=== PATIENT | female | born 1990 | race Caucasian/White ===

== ENCOUNTER → 2016-03-17 | Outpatient (CLI) | payer BC ==
[2016-03-17 15:07] VITALS: BP 132/81; PULSE 94; RESP 20; TEMP 98.1; BMI 40.8
--- NOTE | 2016-03-17 15:58 | P.BASOAP ---
Subjective Principal diagnosis: Morbid obesity Patient seen today after her recent upper endoscopy. She has no new complaints. She is excited about her upcoming bariatric procedure. She has finished her preoperative workup. Her recent upper endoscopy results are reviewed. She finished smoking approximately 3 weeks ago. Objective - Vital Signs Vital signs: Vital Signs Temp 98.1 F 03/17/16 14:56 Pulse 94 03/17/16 14:56 Resp 20 03/17/16 14:56 BP 132/81 03/17/16 14:56 Pulse Ox Intake & Output 03/16/16 03/17/16 03/17/16 18:59 06:59 18:59 Weight 114.85 kg - Exam Abdomen: Soft, nontender, nondistended Assessment/Plan (1) Morbid obesity Narrative/Plan: The patient's operative consent in the associate risks and benefits were discussed again in detail. All questions were appropriately answered. Will move forward with our operative scheduling. Patient will follow up with us next in this office postop. Plan: Date: 03/17/16 Initial Weight: 112.037 kg Initial BMI: 39.9 Current Weight: 114.85 kg Current BMI: 40.8 Type of Surgery: Vertical Sleeve Gastrectomy Total Volume in Band: Previous Volume: Volume Removed: Volume Added: Band Size:
== END | disposition home or self-care (01) ==
LOC: BARWHC3 14:40
PROVIDERS: ATTEND Surgery
DX: Z01.818 Encounter for other preprocedural examination (principal); E66.01 Morbid (severe) obesity due to excess calories
CPT/HCPCS: 99211

== ENCOUNTER 2016-05-01 07:45 | Inpatient (IN) | payer BC ==
[~2016-05-01 07:45] MED LIST: DEXAMETHASONE SOD PHOSPHATE 10 MG/ML 1 ML VIAL IV ONE; ENOXAPARIN 40 MG/0.4 ML SYRINGE SQ ONE; HYDROmorphone 1 MG/ML 1 ML SYRINGE IVP PRN; MIDAZOLAM 2 MG/2 ML VIAL IV PRN; ONDANSETRON 4 MG/2 ML VIAL IVP ONE; SCOPOLAMINE 1.5MG/72HR PATCH TRANSDERM ONE; ceFAZolin 2 GM in SODIUM CHLORIDE 0.9% 100 ML IVPB ONE
--- NOTE | 2016-05-01 10:19 | P.GSHP ---
History of Present Illness H&P Date: 05/01/16 Chief Complaint: Morbid obesity Patient with a history of chronic obesity. She's been suffering with this. The majority of her life. She's tried a variety of different weight loss modalities without any sustained success. She has investigated gastric bypass the lap band and the sleeve gastrectomy but prefers the risk profile of the sleeve gastrectomy. The patient suffers from PCL less, psoriasis, and GERD symptoms. She had a recent upper endoscopy which showed mild gastritis. Denies dysphagia or DVT. BMI when evaluated in the office was 40.4. Past Medical History Additional Past Medical History / Comment(s): PCOS, psoriasis, History of Any Multi-Drug Resistant Organisms: None Reported Past Surgical History: Orthopedic Surgery Additional Past Surgical History / Comment(s): lt knee orthoscopic Past Anesthesia/Blood Transfusion Reactions: No Reported Reaction Past Psychological History: No Psychological Hx Reported Smoking Status: Former smoker Past Alcohol Use History: Rare Additional Past Alcohol Use History / Comment(s): working on quitting, attempting chantex w/Dr Hanson Past Drug Use History: None Reported - Past Family History Mother Family Medical History: Coronary Artery Disease (CAD) Additional Family Medical History / Comment(s): 2 heart attack Father Family Medical History: No Reported History Medications and Allergies Home Medications Medication Instructions Recorded Confirmed Type Etonogestrel [Nexplanon ( 68 mg SQ DIRECTED 11/19/15 04/28/16 History control implant)] Varenicline [Chantix] 0.5 mg PO DAILY 02/04/16 04/28/16 History Clobetasol Propionate/Emoll 1 applic TOPICAL DAILY 02/07/16 04/28/16 History [Clobetasol Emulsion 0.05% Foam] Allergies Allergy/AdvReac Type Severity Reaction Status Date / Time No Known Allergies Allergy Verified 04/28/16 11:18 Surgical - Exam Physical exam: General: Well-developed, well-nourished HEENT: Normocephalic, sclerae nonicteric Abdomen: Nontender, nondistended Extremities: No edema Neuro: Alert and oriented Assessment and Plan (1) Morbid obesity Narrative/Plan: We'll proceed with sleeve gastrectomy at this time. The risks of bleeding, infection, stenosis, leak, abscess, fistula formation, poor weight loss, chronic reflux, respiratory and cardiac complications were discussed. She understands and wishes to proceed. Status: Acute
[2016-05-01] MEDS ORDERED: LIDOCAINE 1% 20 ML VIAL (10MG/ML) FOR IV START INTRADERMA ONE (11:00)
[2016-05-01] MEDS: LACTATED RINGERS 1,000 ML IV SCH (11:07)
[2016-05-01] MEDS ORDERED: NEOSTIGMINE 1 MG/ML 10 ML VIAL ONE (12:57)
[2016-05-01] MEDS ORDERED: SUCCINYLCHOLINE CHLORIDE 100 MG/5 ML SYR IV ONE (12:57)
[2016-05-01] MEDS ORDERED: MIDAZOLAM 2 MG/2 ML VIAL ONE (12:57)
[2016-05-01] MEDS ORDERED: HYDROmorphone (PF) 1 MG/ML ONE (12:57)
[2016-05-01] MEDS ORDERED: GLYCOPYRROLATE 0.2 MG/ML 2 ML VIAL ONE (12:57)
[2016-05-01] MEDS ORDERED: ROCURONIUM BROMIDE 10 MG/ML 10 ML VIAL IV ONE (12:57)
[2016-05-01] MEDS ORDERED: PROPOFOL 10 MG/ML 20 ML VIAL IV ONE (12:57)
[2016-05-01] MEDS ORDERED: fentaNYL (PF) 50 MCG/ML 2 ML AMP ONE (12:57)
[2016-05-01] MEDS ORDERED: LIDOCAINE 1% INJ 10MG/ML (20 ML MDV) ONE (12:57)
[2016-05-01] MEDS ORDERED: BUPIVACAIN-EPI 0.25%-1:200,000 30 ML VIAL SQ ONE ×2 (13:44)
[2016-05-01] MEDS ORDERED: LACTATED RINGERS 1,000 ML IV ONE (14:35)
[2016-05-01] MEDS ORDERED: NALOXONE 0.4 MG/ML 1 ML VIAL IV PRN (14:39)
[2016-05-01] MEDS ORDERED: diphenhydrAMINE 50 MG/ML 1 ML VIAL IVP PRN (14:41)
[2016-05-01] MEDS ORDERED: SIMETHICONE 40 MG/0.6 ML DROPS 2,000 MG/30 ML BOTTLE PO PRN (14:41)
--- NOTE | 2016-05-01 14:49 | P.OP ---
Date of Procedure: 05/01/16 Procedure(s) Performed: PREOPERATIVE DIAGNOSIS: Morbid obesity, GERD, PCO S POSTOPERATIVE DIAGNOSIS: Same PROCEDURE: Laparoscopic sleeve gastrectomy SURGEON: Susan EBL: Minimal ANESTHESIA: General COMPLICATIONS: None OPERATIVE PROCEDURE: Patient was placed in the operating table in the supine position. She was placed under general anesthesia at that time. The abdomen was prepped and draped in sterile fashion after the patient was placed in lithotomy. A 5 mm optical trocar was used to enter the abdominal cavity in the left upper quadrant. Insufflation took place to 15 millimeters mercury. An additional right subxiphoid 5 mm trocar was then placed under direct relation and then removed. 2 additional 5 mm trochars were placed in the right upper quadrant and left upper quadrant under direct visualization and a 15 mm trocar in the supraumbilical location. The liver was retracted using a medium Cinda liver retractor through the right subxiphoid trocar site. The hiatus was inspected. There was no visible hiatal hernia. I then switched and divided the short gastrics distally to a 3-4 cm from the pylorus. The dissection took place up to the left diaphragmatic crura at that point. The posterior short gastrics were likewise divided using the LigaSure device. Once the stomach was fully mobilized the blunt tipped 40-Telugu bougie dilator was advanced into the stomach and advanced all the way to the prepyloric location. A black echelon 60 stapler was utilized and fired tangentially across the antrum taking care to avoid narrowing at the incisura angularis. Subsequent firings of the stapler took place. A total of 5 green echelon 60 staplers with seam guard took place proximally staying on the outer edge of our dilator. The stomach was insufflated with approximately 100 mL of methylene blue. No evidence of leak or obstruction was seen. There were 2 or 3 small areas of bleeding along the staple line were controlled using the 12 mm Ligaclip. Tisseel fibrin glue was then sprayed along the entire length of the staple line. No bleeding was identified. The distal aspect of the sleeve was then reapproximated to the gastrosplenic and gastrocolic ligament using a short running 20 strata fix suture. This was done to prevent kinking or twisting of the sleeve. The stomach remnant was removed from the 15 mm trocar site without difficulty. The fascia at the 15 more site was closed using interrupted 0 Vicryl sutures with the laparoscopic suture passer and Ashu Rosa technique. The insufflation was evacuated. The skin at all 5 incisions were closed using 4-0 Monocryl sutures. Steri-Strips and sterile dressings were then applied. DISPOSITION: Stable to recovery room
[2016-05-01] MEDS ORDERED: MEPERIDINE 50 MG/ML SYRINGE IVP ONE ×2 (15:17→15:30)
[2016-05-01] MEDS: KETOROLAC 30 MG/ML 1 ML VIAL IVP SCH ×2 (15:38→23:14)
[2016-05-01 16:36] VITALS: BMI 39.3
[2016-05-01] MEDS: 0.9% NACL WITH KCL 20 MEQ/L 1,000 ML IV SCH ×2 (16:49→23:13)
[2016-05-01] MEDS: HYDROmorphone 1 MG/ML 1 ML SYRINGE IVP PRN ×3 (17:55→23:14)
[2016-05-01] MEDS: ALBUTEROL NEBULIZED 2.5 MG/3 ML INHALATION SCH ×2 (18:42→18:50)
[2016-05-01] MEDS: ONDANSETRON 4 MG/2 ML VIAL IVP PRN (19:56)
[2016-05-01] MEDS: HYOSCYAMINE ORAL DROPS 1.875 MG/15 ML BOTTLE PO PRN (23:22)
[2016-05-02] MEDS: LACTATED RINGERS 1,000 ML IV SCH (00:27)
[2016-05-02] MEDS: HYDROmorphone 1 MG/ML 1 ML SYRINGE IVP PRN ×5 (03:03→21:40)
[2016-05-02] MEDS: ONDANSETRON 4 MG/2 ML VIAL IVP PRN ×3 (03:03→21:37)
[2016-05-02] MEDS: 0.9% NACL WITH KCL 20 MEQ/L 1,000 ML IV SCH ×2 (03:04→13:19)
[2016-05-02] MEDS: KETOROLAC 30 MG/ML 1 ML VIAL IVP SCH ×4 (05:28→23:37)
[2016-05-02 07:12] LABS: Basophils % (A) 0 %; CH 28.8; CHCM 33.1; Eosinophils % (A) 0 %; HCT 37.1 % (34.0-46.0); HDW 2.68; HGB 11.7 gm/dL (11.4-16.0); Luc # (Auto) 0.09; Luc % (Auto) 1; Lymphocytes # (A) 1.3 k/uL (1.0-4.8); Lymphocytes % (A) 19 %; MCH 27.6 pg (25.0-35.0); MCHC 31.6 g/dL (31.0-37.0); MCV 87.5 fL (80.0-100.0); Monocytes # (A) 0.3 k/uL (0-1.0); Monocytes % (A) 5 %; Neutrophils % (A) 74 %; RBC 4.24 m/uL (3.80-5.40); RDW 13.2 % (11.5-15.5); WBC 6.8 k/uL (3.8-10.6); WBC (Perox) 7.38
[2016-05-02 07:19] LABS: Anion Gap 11 mmol/L; Blood Urea Nitrogen 7 mg/dL (7-17); Calcium 8.2 mg/dL (8.4-10.2); Carbon Dioxide 22 mmol/L (22-30); Chloride 107 mmol/L (98-107); Magnesium 1.9 mg/dL (1.6-2.3); Non-African American GFR(MDRD) >60 (>60 ml/min/1.73 sqM); Phosphorous 3.1 mg/dL (2.5-4.5); Potassium 4.5 mmol/L (3.5-5.1); Sodium 140 mmol/L (137-145)
[2016-05-02] MEDS: ALBUTEROL NEBULIZED 2.5 MG/3 ML INHALATION SCH ×4 (08:01→19:55)
[2016-05-02] MEDS: PANTOPRAZOLE 40 MG/10 ML VIAL IV SCH (08:08)
[2016-05-02] MEDS: ENOXAPARIN 40 MG/0.4 ML SYRINGE SQ SCH ×2 (08:09→21:45)
[2016-05-02] MEDS: HYOSCYAMINE ORAL DROPS 1.875 MG/15 ML BOTTLE PO PRN ×2 (08:10→16:27)
--- NOTE | 2016-05-02 08:57 | FL ---
Single contrast upper GI examination CLINICAL HISTORY: 25-year-old female postop gastric sleeve yesterday TECHNIQUE: Limited upper GI is performed utilizing 40 mL of Omnipaque 350. Total fluoroscopy time: 40 seconds. FINDINGS: The patient swallowed oral contrast without difficulty or delay. Esophageal peristalsis and motility are within normal limits. There is mild to moderate delay in passage of contrast from the esophagus into the stomach. This results in prominent peristalsis within the lower esophagus with episodes of intraesophageal reflux. After gradual and intermittent passage, there is again mild to moderate delay in passage of contrast into the small bowel. There are postsurgical changes of sleeve gastrectomy de monstrated. No evidence of contrast extravasation to suggest leak. Trace postsurgical free air below the right hemidiaphragm. IMPRESSION: 1. No evidence of leak status post sleeve gastrectomy. 2. There is mild to moderate obstruction to the passage of contrast most likely due to postoperative swelling. 3. Trace postsurgical free air on the right.
--- NOTE | 2016-05-02 09:43 | P.PN ---
Subjective Principal diagnosis: Morbid obesity Patient doing well today. Mild abdominal discomfort. She is ambulating. Upper GI this morning shows no leak with minimal holdup in the proximal sleeve Objective - Vital Signs Vital signs: Vital Signs Temp 99 F 05/02/16 07:00 Pulse 92 05/02/16 07:00 Resp 15 05/02/16 07:00 BP 125/70 05/02/16 07:00 Pulse Ox 95 05/02/16 07:00 Intake & Output 05/01/16 05/02/16 05/02/16 18:59 06:59 18:59 Intake Total 1400 400 Output Total 5 1350 Balance 1395 -950 Weight 113.9 kg Intake: IV 1400 400 0.9% NaCl with KCl 20 Meq 400 /l 1,000 ml @ 100 mls/hr IV .BY DURATION LEONID Rx#: [id number] Output: Urine 1350 Estimated Blood Loss 5 Other: Voiding Method Toilet Toilet # Voids 1 - Exam Abdomen: Soft, nondistended, mild tenderness, some old blood at the most lateral 5 mm right upper quadrant incision site - Labs CBC & Chem 7: 05/02/16 06:41 05/02/16 06:41 Labs: Abnormal Lab Results - Last 24 Hours (Table) 05/02/16 Range/Units 06:41 Calcium 8.2 L (8.4-10.2) mg/dL Assessment and Plan (1) Morbid obesity Narrative/Plan: Begin bariatric clear liquids. Crease ambulation. Recheck lab work tomorrow. Status: Acute
--- NOTE | 2016-05-02 19:19 | CONS ---
DATE OF CONSULTATION: 05/02/2016. REASON FOR CONSULTATION: Medical management requested by requested by Dr. Davis. CONSULTATION: This is a 25-year-old patient 25-year-old patient of Dr. Hanson who has undergone a gastric sleeve by Dr. Davis. Patient had some nausea earlier, feeling somewhat better. Patient did pass upper GI series. Some pain at the upper site. The patient has been out of bed, up in the hallway. Patient's chronic stable medical conditions include gastritis, polycystic ovarian syndrome. Patient stopped smoking about 2 months ago. REVIEW OF SYSTEMS: CONSTITUTIONAL: Tired. HEENT: None. RESPIRATORY: None. CARDIOVASCULAR: None. GASTROINTESTINAL: Nausea. GASTROINTESTINAL: None. MUSCULOSKELETAL: None. Dermatologic: None. HEMATOLOGIC: None. LYMPHATICS: None. PSYCHIATRY: None. NEUROLOGICAL: None. Past history of polycystic ovarian syndrome, gastritis and psoriasis. PAST SURGICAL HISTORY: Left knee arthroscopy. SOCIAL HISTORY: The patient stopped smoking 2 months ago. Lives with her parents. Works as a laboratory secretary, at her job. Family history of coronary artery disease. HOME MEDICATIONS: 1. control. 2. Splenon implant. 3. Chantix 0.5 mg p.o. daily. 4. Clobetasol topical. 5. Omeprazole 20 mg daily. 6. [place] 5, 1 to 2 tablets q.4 p.r.n. ALLERGIES: None. On examination, temperature 99, pulse 92, respirations 15, blood pressure 120/70, pulse ox 95% on room air. GENERAL APPEARANCE: Well built, BMI of 39.3, lying in bed, comfortable. EYES: Pupils equal. Conjunctivae normal. HEENT: External appearance of nose and ears normal. Oral cavity normal. NECK: JVD not raised. Mass not palpable. RESPIRATORY: Effort normal. Lungs are clear. CARDIOVASCULAR: First and second sounds normal. No edema. ABDOMEN: Soft, some scar [place] present. Minimal tenderness. Bowel sounds present. Liver and spleen not palpable. LYMPHATIC: No lymph nodes palpable in the neck or axillae. PSYCHIATRY: Alert and oriented x3. Mood and affect normal. NEUROLOGICAL: Pupils equal. Cranial nerves grossly intact. Power and sensation grossly intact. INVESTIGATIONS: White count 6.8, potassium 4.5, hemoglobin 11.7. ASSESSMENT: 1. Obesity, body mass index of 39.3. 2. Polycystic ovarian syndrome. 3. Nausea as a side effect of pain medication. PLAN: Patient encouraged to ambulate and that should help both with nausea and pain control. Medications are to continue. Getting IV fluids. Thank you, Dr. Davis. Will follow.
[2016-05-03] MEDS: HYDROmorphone 1 MG/ML 1 ML SYRINGE IVP PRN (05:04)
[2016-05-03] MEDS: LACTATED RINGERS 1,000 ML IV SCH (06:06)
[2016-05-03] MEDS: KETOROLAC 30 MG/ML 1 ML VIAL IVP SCH ×2 (06:24→11:27)
[2016-05-03 07:19] LABS: Basophils % (A) 1 %; CH 29.3; CHCM 33.4; Eosinophils % (A) 1 %; HCT 37.6 % (34.0-46.0); HDW 2.69; HGB 12.2 gm/dL (11.4-16.0); Luc # (Auto) 0.07; Luc % (Auto) 1; Lymphocytes # (A) 1.3 k/uL (1.0-4.8); Lymphocytes % (A) 25 %; MCH 28.6 pg (25.0-35.0); MCHC 32.4 g/dL (31.0-37.0); MCV 88.3 fL (80.0-100.0); Mean Platelet Volume 7.1; Monocytes # (A) 0.2 k/uL (0-1.0); Monocytes % (A) 4 %; Neutrophils # (A) 3.6 k/uL (1.3-7.7); Neutrophils % (A) 69 %; RBC 4.26 m/uL (3.80-5.40); RDW 13.2 % (11.5-15.5); WBC 5.2 k/uL (3.8-10.6); WBC (Perox) 5.44
[2016-05-03 07:32] LABS: Anion Gap 10 mmol/L; Blood Urea Nitrogen 5 mg/dL (7-17); Calcium 8.6 mg/dL (8.4-10.2); Carbon Dioxide 22 mmol/L (22-30); Chloride 108 mmol/L (98-107); Glucose 75 mg/dL (74-99); Non-African American GFR(MDRD) >60 (>60 ml/min/1.73 sqM); Potassium 4.6 mmol/L (3.5-5.1); Sodium 140 mmol/L (137-145)
[2016-05-03] MEDS: ALBUTEROL NEBULIZED 2.5 MG/3 ML INHALATION SCH ×3 (07:39→16:16)
[2016-05-03] MEDS ORDERED: BISACODYL 5 MG TABLET.DR PO PRN (08:00)
[2016-05-03] MEDS: PANTOPRAZOLE 40 MG/10 ML VIAL IV SCH (08:09)
[2016-05-03] MEDS: ENOXAPARIN 40 MG/0.4 ML SYRINGE SQ SCH (08:09)
[2016-05-03 08:20] VITALS: RESP 15
--- NOTE | 2016-05-03 10:42 | P.DS ---
Providers Date of admission: 05/01/16 08:50 Expected date of discharge: 05/03/16 Attending physician: Fahad Davis Consults: 05/01/16 14:41 Consult Physician Routine Consulting Provider: Dawson Jeff Consult Reason/Comments: Medical management Do you want consulting provider notified?: Yes Primary care physician: Alfred Hanson - Discharge Diagnosis(es) (1) Morbid obesity Patient doing well today. Tolerating her clear liquids. Minimal abdominal discomforts. No nausea or vomiting. She's taken about 10-12 ounces so far this morning. She would like to try to go home today. Her white blood cell count 5.2. His incisions are clean and dry. No further bleeding from that smaller incision site. Anticipate discharge later today with plans for follow- up on Wednesday. Current Visit: No Status: Acute Plan - Discharge Summary New Discharge Prescriptions: Hydrocodone/Acetaminophen [[place] 5-325] 1 - 2 each PO Q4HR PRN #30 tab PRN Reason: pain Omeprazole 20 mg PO DAILY #90 cap Discharge Medication List Etonogestrel [Nexplanon ( control implant)] 68 mg SQ [id number] 11/19/15 [ History] Varenicline [Chantix] 0.5 mg PO DAILY 02/04/16 [History] Clobetasol Propionate/Emoll [Clobetasol Emulsion 0.05% Foam] 1 applic TOPICAL DAILY 02/07/16 [History] Hydrocodone/Acetaminophen [[place] 5-325] 1 - 2 each PO Q4HR PRN #30 tab 05/01/16 [Rx] Omeprazole 20 mg PO DAILY #90 cap 05/01/16 [Rx] Follow up Appointment(s)/Referral(s): [facility] [NON-STAFF] - 05/05/16
[2016-05-03 15:38] VITALS: BP 120/74; PULSE 72; TEMP 97.8
--- NOTE | 2016-05-04 08:30 | PN ---
DATE OF SERVICE: 05/03/2016 PRESENTING COMPLAINT: Sleeve gastrectomy. INTERVAL HISTORY: Patient is status post sleeve gastrectomy, doing much better today. Did tolerate some liquids. No nausea. Has been up and about. Pain is better controlled. Review of systems done for constitutional, cardiovascular, GI, pulmonary; relevant findings as above. Current medications are reviewed. On examination, temperature 97.9, pulse 87, respiration 15, blood pressure 118/79, pulse ox 97% on room air. GENERAL APPEARANCE: Lying in bed, comfortable. EYES: Pupils equal. Conjunctivae normal. NECK: JVD not raised. Mass not palpable. RESPIRATORY: Effort normal. Lungs are clear. CARDIOVASCULAR: First and second sounds normal. No edema. ABDOMEN: Soft, minimal tenderness. Bowel sounds present. PSYCHIATRY: Alert and oriented x3. Mood and affect normal. INVESTIGATIONS: Potassium 4.6, white count 5.2. ASSESSMENT: 1. Obesity, body mass index of 39.3. 2. Polycystic ovarian syndrome. 3. Nausea as a side effect of pain medication, improved. PLAN: Patient doing well. Continue current medication and treatment plan. Discharge planning per Dr. Davis.
== END 2016-05-03 17:03 | disposition home or self-care (01) | DRG 621 ==
LOC: 2ORWHC 08:50 → 3SUR 15:07
PROVIDERS: ADMIT Surgery; ATTEND Surgery
PROC: 0DB64Z3 Excision of Stomach, Percutaneous Endoscopic Approach, Vertical (ICD-10-PCS; principal; 2016-05-01 13:00)
DX: E66.01 Morbid (severe) obesity due to excess calories (principal); Z68.39 Body mass index [BMI] 39.0-39.9, adult; E28.2 Polycystic ovarian syndrome; K21.9 Gastro-esophageal reflux disease without esophagitis; L40.9 Psoriasis, unspecified; K29.70 Gastritis, unspecified, without bleeding; R11.0 Nausea; T50.905A Adverse effect of unspecified drugs, medicaments and biological substances, initial encounter; Z87.891 Personal history of nicotine dependence; Z79.899 Other long term (current) drug therapy; Y92.230 Patient room in hospital as the place of occurrence of the external cause
CPT/HCPCS: 74240; 80048; 80051; 81025; 82310; 82565; 83735; 84100; 84520; 85025; 88307; 94640

== ENCOUNTER → 2016-05-05 | Outpatient (CLI) | payer BC ==
[2016-05-05 15:31] VITALS: BMI 39.4
[2016-05-05 15:39] VITALS: BP 128/87; PULSE 83; TEMP 97.9
--- NOTE | 2016-05-05 16:02 | P.BASOAP ---
Subjective Principal diagnosis: Morbid obesity Patient doing well today. She is 4 days post sleeve gastrectomy. She has had about a 10 pound weight loss. Heart rate is normal. Excellent fluid intake of 60-70 ounces. Protein about 60 g per day. No drainage. No nausea or vomiting. Objective - Vital Signs Vital signs: Vital Signs Temp 97.9 F 05/05/16 15:35 Pulse 83 05/05/16 15:35 Resp BP 128/87 05/05/16 15:35 Pulse Ox Intake & Output 05/04/16 05/05/16 05/05/16 18:59 06:59 18:59 Weight 110.858 kg - Exam Abdomen: Soft, nondistended, mild tenderness at the incision sites are clean and dry Assessment/Plan (1) Morbid obesity Narrative/Plan: Continue clear diet. Meet with dietitian today. Follow-up in the office 2 weeks. Plan: Date: 05/05/16 Initial Weight: 112.037 kg Initial BMI: 39.9 Current Weight: 110.858 kg Current BMI: 39.4 Type of Surgery: Total Volume in Band: Previous Volume: Volume Removed: Volume Added: Band Size:
== END | disposition home or self-care (01) ==
LOC: BARWHC3 13:59
PROVIDERS: ATTEND Surgery
DX: Z48.815 Encounter for surgical aftercare following surgery on the digestive system (principal); Z71.3 Dietary counseling and surveillance; E66.01 Morbid (severe) obesity due to excess calories; Z68.39 Body mass index [BMI] 39.0-39.9, adult; Z98.84 Bariatric surgery status
CPT/HCPCS: 99211

== ENCOUNTER 2016-05-17 08:07 | Emergency (ER) | payer BC ==
[2016-05-17 08:16] VITALS: RESP 18
[2016-05-17] MEDS ORDERED: IOHEXOL 350 MG/ML 25 ML BOTTLE (ORAL USE) PO PRN (08:31)
[2016-05-17] MEDS ORDERED: SODIUM CHLORIDE 0.9% 1,000 ML IV STA (08:31)
[2016-05-17] MEDS ORDERED: RX INFO: IV CONTRAST WAS GIVEN 1 EACH MISC MISCELLANE PRN (08:31)
--- NOTE | 2016-05-17 08:38 | ED ---
General Adult HPI - General Chief complaint: Abdominal Pain Stated complaint: post op problems Time Seen by Provider: 05/17/16 08:18 Source: patient Mode of arrival: ambulatory Limitations: no limitations - History of Present Illness Initial comments: 25-year-old female patient who is status post sleeve gastrectomy [address] Davis presents to emergency department today with complaints of diarrhea. Patient states that yesterday she felt generally unwell, had some lower abdominal cramping towards the evening, as well as a fever of 101. Patient states that this morning when she woke she had a couple episodes of watery diarrhea, and some more lower abdominal cramping. Patient denies any nausea or vomiting and states that she has been able to keep down fluids. Patient did switch diet to soft foods 2 days ago. Patient denies any current fever or chills, chest pain, shortness of breath, back pain, weakness, or dizziness. Patient denies any dark, bloody, or black stools. Patient denies any urinary frequency, urgency, or dysuria. Patient states that she does have some mild nasal drainage and congestion, as well as a cough. Patient denies any increased pain, redness, swelling, or drainage from her incision sites. - Related Data Home Medications Medication Instructions Recorded Confirmed Etonogestrel [Nexplanon ( 68 mg SQ [id number] 11/19/15 05/17/16 control implant)] Clobetasol Propionate/Emoll 1 applic TOPICAL DAILY 02/07/16 05/17/16 [Clobetasol Emulsion 0.05% Foam] Allergies Allergy/AdvReac Type Severity Reaction Status Date / Time No Known Allergies Allergy Verified 05/17/16 08:16 Review of Systems ROS Statement: Those systems with pertinent positive or pertinent negative responses have been documented in the HPI. ROS Other: All systems not noted in ROS Statement are negative. Past Medical History Past Medical History: No Reported History Additional Past Medical History / Comment(s): PCOS, psoriasis, History of Any Multi-Drug Resistant Organisms: None Reported Past Surgical History: Bariatric Surgery, Orthopedic Surgery Additional Past Surgical History / Comment(s): lt knee orthoscopic; gastric sleeve 05-01-16 Past Anesthesia/Blood Transfusion Reactions: No Reported Reaction Past Psychological History: No Psychological Hx Reported Smoking Status: Former smoker Past Alcohol Use History: None Reported Additional Past Alcohol Use History / Comment(s): working on quitting, attempting chantex w/Dr Hanson Past Drug Use History: None Reported - Past Family History Mother Family Medical History: Coronary Artery Disease (CAD) Additional Family Medical History / Comment(s): 2 heart attack Father Family Medical History: No Reported History General Exam Limitations: no limitations General appearance: alert, in no apparent distress Head exam: Present: atraumatic, normocephalic Eye exam: Present: normal appearance, PERRL, EOMI Pupils: Present: normal accommodation ENT exam: Present: normal exam, normal oropharynx, mucous membranes moist. Absent: mucous membranes dry Neck exam: Present: normal inspection, full ROM. Absent: lymphadenopathy Respiratory exam: Present: normal lung sounds bilaterally. Absent: respiratory distress, wheezes, rales, rhonchi Cardiovascular Exam: Present: regular rate, normal rhythm. Absent: bradycardia , tachycardia, irregular rhythm, normal heart sounds, systolic murmur, diastolic murmur, rubs, gallop, clicks, JVD GI/Abdominal exam: Present: soft, tenderness (Mild tenderness near umbilical incision), normal bowel sounds, other (Abdominal incisions are well approximated , without erythema, swelling, or drainage.). Absent: distended, guarding, rebound, rigid, diminished bowel sounds, organomegaly, mass, hernia Extremities exam: Present: normal inspection Back exam: Present: normal inspection Neurological exam: Present: alert, oriented X3, CN II-XII intact Psychiatric exam: Present: normal affect, normal mood Skin exam: Present: warm, dry, intact Course Vital Signs 05/17/16 05/17/16 08:12 08:57 Temperature 98.3 F 99 F Pulse Rate 85 Respiratory 18 Rate Blood Pressure 119/72 O2 Sat by Pulse 100 Oximetry Medical Decision Making - Medical Decision Making 25-year-old female patient who is status post sleeve gastrectomy [address] Davis presented to emergency department today for complaints of diarrhea, fever, general malaise, and lower abdominal cramping. Patient did receive lab work which was unremarkable other than a lipase of 387. Also did have a CT abdomen and pelvis with oral and IV contrast which did not reveal any abnormalities. At this time it is felt that symptoms are viral in nature. Patient has been instructed to continue a clear liquid diet for the next 48 hours and to have a repeat lipase level done at that time. Patient does have a definite appointment with her surgeon on Wednesday. Patient has been instructed to keep this appointment. Patient also instructed to return for any new, worsening, or concerning symptoms. Patient verbalizes understanding and agrees this plan. - Lab Data Result diagrams: 05/17/16 08:45 05/17/16 08:45 Lab Results 05/17/16 05/17/16 05/17/16 Range/Units 08:45 08:45 08:45 WBC 3.9 (3.8-10.6) k/uL RBC 4.99 (3.80-5.40) m/uL Hgb 14.0 (11.4-16.0) gm/dL Hct 43.5 (34.0-46.0) % MCV 87.4 (80.0-100.0) fL MCH 28.0 (25.0-35.0) pg MCHC 32.1 (31.0-37.0) g/dL RDW 13.3 (11.5-15.5) % Plt Count 285 (150-450) k/uL Neutrophils % 70 % Lymphocytes % 22 % Monocytes % 4 % Eosinophils % 2 % Basophils % 1 % Neutrophils # 2.8 (1.3-7.7) k/uL Lymphocytes # 0.9 L (1.0-4.8) k/uL Monocytes # 0.1 (0-1.0) k/uL Eosinophils # 0.1 (0-0.7) k/uL Basophils # 0.0 (0-0.2) k/uL Sodium 145 (137-145) mmol/L Potassium 4.1 (3.5-5.1) mmol/L Chloride 105 (98-107) mmol/L Carbon Dioxide 27 (22-30) mmol/L Anion Gap 13 mmol/L BUN 8 (7-17) mg/dL Creatinine 0.91 (0.52-1.04) mg/dL Est GFR (MDRD) Af Amer >60 (>60 ml/min/1.73 sqM) Est GFR (MDRD) Non-Af >60 (>60 ml/min/1.73 sqM) Glucose 108 H (74-99) mg/dL Calcium 9.4 (8.4-10.2) mg/dL Total Bilirubin 0.7 (0.2-1.3) mg/dL AST 33 (14-36) U/L ALT 30 (9-52) U/L Alkaline Phosphatase 88 (38-126) U/L Total Protein 7.7 (6.3-8.2) g/dL Albumin 4.3 (3.5-5.0) g/dL Amylase 55 (30-110) U/L Lipase 387 H (23-300) U/L Influenza Type A RNA Not Detected (Not Detectd) Influenza Type B (PCR) Not Detected (Not Detectd) - Radiology Data Radiology results: report reviewed CT abdomen and pelvis with oral and IV contrast reveals no acute abnormalities. Impression by Dr. Lind is postsurgical changes. Disposition Clinical Impression: Diarrhea, Abdominal discomfort Disposition: HOME SELF-CARE Condition: Stable Instructions: Acute Diarrhea (ED), Abdominal Pain (ED) Additional Instructions: Clear liquid diet for the next 48 hours. Have lipase rechecked by in 2 days. Keep follow-up appointment with bariatric surgeon. Return immediately for any new, worsening, or concerning symptoms. Referrals: Alfred Hanson MD [Primary Care Provider] - 1-2 days Fahad Davis MD [Medical Doctor] - 1-2 days Time of Disposition: 10:23
[2016-05-17 09:01] LABS: Basophils % (A) 1 %; CH 28.8; CHCM 33.1; Eosinophils # (A) 0.1 k/uL (0-0.7); Eosinophils % (A) 2 %; HCT 43.5 % (34.0-46.0); HDW 2.88; Luc # (Auto) 0.07; Luc % (Auto) 2; Lymphocytes # (A) 0.9 k/uL (1.0-4.8); Lymphocytes % (A) 22 %; MCHC 32.1 g/dL (31.0-37.0); MCV 87.4 fL (80.0-100.0); Mean Platelet Volume 7.1; Monocytes # (A) 0.1 k/uL (0-1.0); Monocytes % (A) 4 %; Neutrophils # (A) 2.8 k/uL (1.3-7.7); Neutrophils % (A) 70 %; RBC 4.99 m/uL (3.80-5.40); RDW 13.3 % (11.5-15.5); WBC 3.9 k/uL (3.8-10.6); WBC (Perox) 3.97
[2016-05-17 09:13] LABS: ALT 30 U/L (9-52); AST 33 U/L (14-36); Alkaline Phosphatase 88 U/L (38-126); Amylase 55 U/L (30-110); Anion Gap 13 mmol/L; Blood Urea Nitrogen 8 mg/dL (7-17); Calcium 9.4 mg/dL (8.4-10.2); Carbon Dioxide 27 mmol/L (22-30); Chloride 105 mmol/L (98-107); Glucose 108 mg/dL (74-99); Non-African American GFR(MDRD) >60 (>60 ml/min/1.73 sqM); Potassium 4.1 mmol/L (3.5-5.1); Sodium 145 mmol/L (137-145); Total Bilirubin 0.7 mg/dL (0.2-1.3); Total Protein 7.7 g/dL (6.3-8.2)
--- NOTE | 2016-05-17 10:12 | CT ---
EXAMINATION TYPE: CT abdomen pelvis w con DATE OF EXAM: 05/17/2016 10:01 AM COMPARISON: NONE HISTORY: post op 2 weeks, fever and diarrhea CT DLP: 2417.3 mGycm Automated exposure control for dose reduction was used. CONTRAST: CT scan of the abdomen pelvis is performed with IV Contrast, patient injected with 100 mL of Omnipaqu e 300. FINDINGS- LUNG BASES- No significant abnormality is appreciated. LIVER/GB-low density involving the left lobe liver may represent localized fatty infiltration. PANCREAS- No gross abnormality is seen. SPLEEN- No gross abnormality is seen. ADRENALS- No gross abnormality is seen. KIDNEYS/BLADDER- no hydronephrosis nephrolithiasis or renal mass. BOWEL- no bowel dilatation. Normal appendix. Postsurgical change involving the stomach noted. LYMPH NODES- No greater than 1cm abdominal or pelvic lymph nodes are appreciated. OSSEOUS STRUCTURES- No significant abnormality is seen. OTHER- small periumbilical hernia containing peritoneal fat. Ovaries appear symmetric in size. IMPRESSION- 1. Postsurgical changes
[2016-05-17 10:24] VITALS: BP 113/57; PULSE 69
[2016-05-17 10:39] VITALS: TEMP 99.4
== END 2016-05-17 10:39 | disposition home or self-care (01) ==
LOC: EC 08:07
DX: R10.33 Periumbilical pain (principal); R19.7 Diarrhea, unspecified; R50.9 Fever, unspecified; R53.81 Other malaise; R05 Cough; R09.81 Nasal congestion; L40.9 Psoriasis, unspecified; Z87.891 Personal history of nicotine dependence; Z79.3 Long term (current) use of hormonal contraceptives; Z79.899 Other long term (current) drug therapy; Z98.84 Bariatric surgery status; Z90.49 Acquired absence of other specified parts of digestive tract
CPT/HCPCS: 36415; 80053; 82150; 83690; 85025; 87040; 87502; 74177; 99284; 96360; Q9967

== ENCOUNTER → 2016-05-19 | Outpatient (CLI) | payer BC ==
[2016-05-19 16:00] VITALS: BP 116/65; PULSE 66; RESP 20; TEMP 97.8; BMI 38.2
--- NOTE | 2016-05-19 16:06 | P.BASOAP ---
Subjective Principal diagnosis: Morbid obesity Patient is 3 weeks post sleeve gastrectomy. She is doing well at this time. Apparently 3 days ago she had some vague nausea and episode of diarrhea with a low-grade fever. She was concerned and without contacting our office went to the ER for evaluation. She underwent a CAT scan and basic lab work. The CT shows no definite inflammatory changes in the sleeve region. Her lipase was slightly elevated. Her white blood cell count was normal. She has a normal heart rate at this time. Her pain is absent. No reflux. No nausea or vomiting. She was able to tolerate some an omelette this morning. Weight loss to 236 from 244 last visit. Objective - Exam Abdomen: Soft, nondistended, nontender, incisions clean and dry Assessment/Plan (1) Morbid obesity Narrative/Plan: Continue soft diet. Patient had recent labs while in the emergency department. We'll follow up in 4 weeks and we'll obtain full complement of lab work at that time. Plan: Date: Initial Weight: 112.037 kg Initial BMI: Current Weight: Current BMI: Type of Surgery: Total Volume in Band: Previous Volume: Volume Removed: Volume Added: Band Size:
== END | disposition home or self-care (01) ==
LOC: BARWHC3 14:53
PROVIDERS: ATTEND Surgery
DX: Z48.815 Encounter for surgical aftercare following surgery on the digestive system (principal); E66.01 Morbid (severe) obesity due to excess calories; Z98.84 Bariatric surgery status
CPT/HCPCS: 99211

== ENCOUNTER → 2016-07-14 | Outpatient (CLI) | payer BC ==
[2016-07-14 15:20] VITALS: BP 132/76; PULSE 65; RESP 20; TEMP 98.8; BMI 34.9
--- NOTE | 2016-07-14 15:55 | P.BASOAP ---
Subjective Principal diagnosis: Morbid obesity Patient doing well today. Denies pain. No dysphagia. Still taking antiacids but has no complaints of reflux. She is overdue for her one-month labs. She has had excellent weight loss of approximately 20 pounds since her last visit 6 weeks ago. Objective - Vital Signs Vital signs: Vital Signs Temp 98.8 F 07/14/16 15:16 Pulse 65 07/14/16 15:16 Resp 20 07/14/16 15:16 BP 132/76 07/14/16 15:16 Pulse Ox Intake & Output 07/13/16 07/14/16 07/14/16 18:59 06:59 18:59 Weight 98.384 kg - Exam Abdomen: Soft, nondistended, nontender Assessment/Plan (1) Morbid obesity Narrative/Plan: Continue gradually advancing diet. Increase activity levels at this point. We' ll check one month lab work at this time. Follow up for 6 weeks. Plan: Date: Initial Weight: 112.037 kg Initial BMI: 39.9 Current Weight: 98.384 kg Current BMI: 34.9 Type of Surgery: Total Volume in Band: Previous Volume: Volume Removed: Volume Added: Band Size:
== END | disposition home or self-care (01) ==
LOC: BARWHC3 14:50
PROVIDERS: ATTEND Surgery
DX: E66.01 Morbid (severe) obesity due to excess calories (principal); K90.89 Other intestinal malabsorption; E55.9 Vitamin D deficiency, unspecified
CPT/HCPCS: 97803; 99211

== ENCOUNTER 2017-04-29 17:34 | Emergency (ER) | payer BC ==
[2017-04-29] MEDS ORDERED: SODIUM CHLORIDE 0.9% 1,000 ML IV ONE (18:22)
[2017-04-29 19:19] LABS: Basophils # (A) 0.1 k/uL (0-0.2); Basophils % (A) 1 %; Eosinophils # (A) 0.1 k/uL (0-0.7); Eosinophils % (A) 2 %; HCT 43.2 % (34.0-46.0); HGB 13.5 gm/dL (11.4-16.0); Lymphocytes # (A) 2.6 k/uL (1.0-4.8); Lymphocytes % (A) 38 %; MCH 28.9 pg (25.0-35.0); MCHC 31.2 g/dL (31.0-37.0); MCV 92.6 fL (80.0-100.0); Mean Platelet Volume 6.5; Monocytes # (A) 0.2 k/uL (0-1.0); Monocytes % (A) 3 %; Neutrophils # (A) 3.7 k/uL (1.3-7.7); Neutrophils % (A) 55 %; Platelet Count 298 k/uL (150-450); RBC 4.67 m/uL (3.80-5.40); WBC 6.7 k/uL (3.8-10.6)
[2017-04-29 19:25] LABS: Appearance,Urine Turbid (Clear); Bacteria,Urine Few /hpf; Bilirubin,Urine Negative (Negative); Blood,Urine Moderate (Negative); Color,Urine Yellow; Glucose,Urine (UA) Negative (Negative); HCG,Qualitative Serum Not Detected; Ketones,Urine Negative (Negative); Leukocyte Esterase,Urine Large (Negative); Mucus,Urine Rare /hpf; Nitrite,Urine Negative (Negative); PH, Urine 5.5 (5.0-8.0); Protein,Urine 1+ (Negative); RBC,Urine 30 /hpf (0-5); Squamous Epithelial Cell,Urine 58 /hpf (0-4); WBC,Urine 46 /hpf (0-5)
[2017-04-29 19:34] LABS: ALT 17 U/L (9-52); AST 26 U/L (14-36); Albumin 4.3 g/dL (3.5-5.0); Alkaline Phosphatase 69 U/L (38-126); Anion Gap 10 mmol/L; Blood Urea Nitrogen 8 mg/dL (7-17); Calcium 9.6 mg/dL (8.4-10.2); Carbon Dioxide 28 mmol/L (22-30); Chloride 105 mmol/L (98-107); Glucose 83 mg/dL (74-99); Lipase 103 U/L (23-300); Potassium 3.8 mmol/L (3.5-5.1); Sodium 143 mmol/L (137-145); Total Bilirubin 0.4 mg/dL (0.2-1.3); Total Protein 7.4 g/dL (6.3-8.2)
[2017-04-29] MEDS ORDERED: MORPHINE SULFATE 4 MG/ML SYRINGE IVP STA (19:53)
[2017-04-29] MEDS ORDERED: KETOROLAC 30 MG/ML 1 ML VIAL IVP STA (19:53)
--- NOTE | 2017-04-29 20:03 | CT ---
EXAMINATION TYPE: CT abdomen pelvis wo con DATE OF EXAM: 04/29/2017 COMPARISON: CT 05/17/2016 HISTORY: Right sided pain with nausea and vomiting. History of stones. CT DLP: 556.4 mGycm Automated exposure control for dose reduction was used. TECHNIQUE: Helical acquisition of images was performed from the lung bases through the pelvis. FINDINGS: LUNG BASES: No significant abnormality is appreciated. LIVER/GB: No significant abnormality is appreciated. PANCREAS: No significant abnormality is seen. SPLEEN: No significant abnormality is seen. ADRENALS: No significant abnormality is seen. KIDNEYS URETERS AND BLADDER: There is a 3 mm calcification in the distal most right ureter, approxima tely 1 cm proximal to the right ureteral vesicle junction. This is located on axial image 133 of 162. There are no other calcifications throughout the kidneys and ureters and bladder. There is no hydron ephrosis and no hydroureter. FREE AIR: No free air is visualized RETROPERITONEAL ADENOPATHY: None visualized REPRODUCTIVE ORGANS: No significant abnormality is seen PELVIC ADENOPATHY: None visualized. OSSEOUS STRUCTURES: No significant abnormality is seen. BOWEL: No significant abnormality is seen. Appendix is negative. IMPRESSION: 3 MM DISTAL RIGHT URETERAL CALCIFICATION.
--- NOTE | 2017-04-29 20:10 | ED ---
Abdominal Pain HPI - General Chief Complaint: Abdominal Pain Stated Complaint: RT SIDE ABDOMINAL PAIN Time Seen by Provider: 04/29/17 18:13 Source: patient Mode of arrival: ambulatory Limitations: no limitations - History of Present Illness Initial Comments: Patient is a 26-year-old who presents with a chief complaint of abdominal pain. This is been going on for about one half days. Patient states it is a sharp pain in her right lower quadrant with some radiation to the back. She cannot identify any inciting incidences. There are no aggravating or alleviating factors. Timing is intermittent. - Related Data Home Medications Medication Instructions Recorded Confirmed Etonogestrel [Nexplanon ( 68 mg SQ [id number] 11/19/15 04/29/17 control implant)] Clobetasol Propionate/Emoll 1 applic TOPICAL DAILY 02/07/16 04/29/17 [Clobetasol Emulsion 0.05% Foam] Previous Rx's Medication Instructions Recorded HYDROcodone/APAP 5-325MG [Belle 1 tab PO Q4HR PRN #12 tab 04/29/17 5-325] Ondansetron HCl [Zofran] 4 mg PO Q6HR #12 tablet 04/29/17 Tamsulosin [Flomax] 0.4 mg PO DAILY 3 Days #3 cap 04/29/17 Allergies Allergy/AdvReac Type Severity Reaction Status Date / Time No Known Allergies Allergy Verified 04/29/17 18:32 Review of Systems ROS Statement: Those systems with pertinent positive or pertinent negative responses have been documented in the HPI. ROS Other: All systems not noted in ROS Statement are negative. Gastrointestinal: Reports: nausea, vomiting Genitourinary: Denies: urgency, dysuria Past Medical History Past Medical History: No Reported History Additional Past Medical History / Comment(s): PCOS, psoriasis, History of Any Multi-Drug Resistant Organisms: None Reported Past Surgical History: Bariatric Surgery, Orthopedic Surgery Additional Past Surgical History / Comment(s): lt knee orthoscopic; gastric sleeve 05-01-16 Past Anesthesia/Blood Transfusion Reactions: No Reported Reaction Past Psychological History: No Psychological Hx Reported Smoking Status: Current every day smoker Past Alcohol Use History: None Reported Past Drug Use History: None Reported - Past Family History Mother Family Medical History: Coronary Artery Disease (CAD) Additional Family Medical History / Comment(s): 2 heart attack Father Family Medical History: No Reported History General Exam Limitations: no limitations General appearance: alert, in no apparent distress Head exam: Present: atraumatic, normocephalic Eye exam: Present: normal appearance ENT exam: Present: normal exam, mucous membranes moist Neck exam: Present: normal inspection Respiratory exam: Present: normal lung sounds bilaterally. Absent: respiratory distress Cardiovascular Exam: Present: regular rate, normal rhythm GI/Abdominal exam: Present: soft, tenderness (Patient has some tenderness to palpation of the right lower quadrant. There is no rebound tenderness.). Absent: distended Back exam: Absent: CVA tenderness (R), CVA tenderness (L) Neurological exam: Present: alert, oriented X3 Psychiatric exam: Present: normal affect, normal mood Skin exam: Present: warm, dry, intact Course Vital Signs 04/29/17 17:53 Temperature 99.2 F Pulse Rate 75 Respiratory 16 Rate Blood Pressure 149/85 O2 Sat by Pulse 100 Oximetry Medical Decision Making - Medical Decision Making Patient presents with a chief complaint of abdominal pain. On initial evaluation, vital signs are stable, patient is in no acute distress. History and physical examination are worrisome for appendicitis versus kidney stone. Patient was offered pain medication but declined initially. Laboratory evaluation is unremarkable. Urinalysis shows hematuria however patient is currently on her period. There is rare bacteria. Urine is borderline for infection, patient is not experiencing urinary symptoms at this time therefore treatment will be held, culture will be sent. CT evaluation of the abdomen and pelvis shows a 3 mm renal stone at the distal ureter. I discussed these results with the patient. We agreed on outpatient management with pain control , nausea control, Flomax, and hydration. Patient was given explicit instructions on signs and symptoms that should prompt return visit to the emergency department. She was given urology follow-up. She was instructed to follow up with her primary care doctor in 1-2 days or return to the emergency department for reevaluation in 12-24 hours if symptoms are worse. - Lab Data Result diagrams: 04/29/17 18:55 04/29/17 18:55 Lab Results 04/29/17 04/29/17 04/29/17 Range/Units 18:55 18:55 18:55 WBC 6.7 (3.8-10.6) k/uL RBC 4.67 (3.80-5.40) m/uL Hgb 13.5 (11.4-16.0) gm/dL Hct 43.2 (34.0-46.0) % MCV 92.6 (80.0-100.0) fL MCH 28.9 (25.0-35.0) pg MCHC 31.2 (31.0-37.0) g/dL RDW 13.0 (11.5-15.5) % Plt Count 298 (150-450) k/uL Neutrophils % 55 % Lymphocytes % 38 % Monocytes % 3 % Eosinophils % 2 % Basophils % 1 % Neutrophils # 3.7 (1.3-7.7) k/uL Lymphocytes # 2.6 (1.0-4.8) k/uL Monocytes # 0.2 (0-1.0) k/uL Eosinophils # 0.1 (0-0.7) k/uL Basophils # 0.1 (0-0.2) k/uL Sodium 143 (137-145) mmol/L Potassium 3.8 (3.5-5.1) mmol/L Chloride 105 (98-107) mmol/L Carbon Dioxide 28 (22-30) mmol/L Anion Gap 10 mmol/L BUN 8 (7-17) mg/dL Creatinine 0.67 (0.52-1.04) mg/dL Est GFR (MDRD) Af Amer >60 (>60 ml/min/1.73 sqM) Est GFR (MDRD) Non-Af >60 (>60 ml/min/1.73 sqM) Glucose 83 (74-99) mg/dL Calcium 9.6 (8.4-10.2) mg/dL Total Bilirubin 0.4 (0.2-1.3) mg/dL AST 26 (14-36) U/L ALT 17 (9-52) U/L Alkaline Phosphatase 69 (38-126) U/L Total Protein 7.4 (6.3-8.2) g/dL Albumin 4.3 (3.5-5.0) g/dL Lipase 103 (23-300) U/L HCG, Qual Not Detected Urine Color Yellow Urine Appearance Turbid H (Clear) Urine pH 5.5 (5.0-8.0) Ur Specific Robinson 1.020 (1.001-1.035) Urine Protein 1+ H (Negative) Urine Glucose (UA) Negative (Negative) Urine Ketones Negative (Negative) Urine Blood Moderate H (Negative) Urine Nitrite Negative (Negative) Urine Bilirubin Negative (Negative) Urine Urobilinogen 2.0 (<2.0) mg/dL Ur Leukocyte Esterase Large H (Negative) Urine RBC 30 H (0-5) /hpf Urine WBC 46 H (0-5) /hpf Ur Squamous Epith Cells 58 H (0-4) /hpf Urine Bacteria Few H (None) /hpf Urine Mucus Rare H (None) /hpf Disposition Clinical Impression: Ureterolithiasis Disposition: HOME SELF-CARE Condition: Good Instructions: Kidney Stones (ED) Referrals: Alfred Hasnon MD [Primary Care Provider] - 1-2 days Willy Khan MD [STAFF PHYSICIAN] - 1-2 days
[2017-04-29 20:22] VITALS: BP 129/72; PULSE 70; RESP 12; TEMP 99.3
== END 2017-04-29 20:30 | disposition home or self-care (01) ==
LOC: EC 17:34
DX: N20.1 Calculus of ureter (principal); F17.200 Nicotine dependence, unspecified, uncomplicated; Z79.3 Long term (current) use of hormonal contraceptives; Z79.899 Other long term (current) drug therapy
CPT/HCPCS: 36415; 80053; 83690; 85025; 81001; 84703; 74176; 99284; 96374; 96375; 96361; J2270; J1885

== ENCOUNTER → 2019-01-20 | Outpatient (CLI) | payer BC ==
--- NOTE | 2019-01-20 08:17 | US ---
EXAMINATION TYPE: US duplex aorta DATE OF EXAM: 01/20/2019 COMPARISON: NONE CLINICAL HISTORY: Z82.49 family hx of aortic aneurysm. Family Hx of AAA. EXAM MEASUREMENTS: Abdominal Aorta: Proximal: 1.8 x 1.7 cm Mid: 1.5 x 1.1 cm Distal: 1.3 x 1.1 cm Bifurcation: .9 x .8 cm 1.0 x .8 cm No sonographic evidence of abdominal aortic aneurysm. IMPRESSION: No abdominal aortic aneurysm seen in the visualized portions of the abdominal aorta.
== END | disposition home or self-care (01) ==
LOC: RADUSWWP 07:05
PROVIDERS: ATTEND Family Medicine
DX: Z13.6 Encounter for screening for cardiovascular disorders (principal); Z82.49 Family history of ischemic heart disease and other diseases of the circulatory system
CPT/HCPCS: 93979

== ENCOUNTER → 2022-11-17 | Outpatient (CLI) | payer BC ==
[~2022-11-17] MED LIST changes: -DEXAMETHASONE SOD PHOSPHATE 10 MG/ML 1 ML VIAL IV ONE; -ENOXAPARIN 40 MG/0.4 ML SYRINGE SQ ONE; -HYDROmorphone 1 MG/ML 1 ML SYRINGE IVP PRN; +IRON SUCROSE 200 MG in SODIUM CHLORIDE 0.9% 100 ML IVPB NR; -MIDAZOLAM 2 MG/2 ML VIAL IV PRN; -ONDANSETRON 4 MG/2 ML VIAL IVP ONE; -SCOPOLAMINE 1.5MG/72HR PATCH TRANSDERM ONE; +SODIUM CHLORIDE 0.9% 500 ML 500 ML in EMPTY BAG 1 BAG IV PRN; -ceFAZolin 2 GM in SODIUM CHLORIDE 0.9% 100 ML IVPB ONE
[2022-11-17 13:18] VITALS: BP 149/91; PULSE 73; RESP 16; TEMP 98.3
== END ==
LOC: PROCWHC3 13:03
PROVIDERS: ATTEND Family Medicine
DX: D64.9 Anemia, unspecified (principal)
CPT/HCPCS: 96365; J1756

== ENCOUNTER → 2023-06-28 | Outpatient (CLI) | payer BC ==
--- NOTE | 2023-07-06 12:21 | EM ---
EVENT MONITOR STUDY: 7-day event monitor. INDICATIONS: Rule out cardiac arrhythmia. FINDINGS: The patient was monitored for 7 days only. The baseline rhythm appeared to be sinus mechanism. No PVCs noted. No PACs noted. No sinus pause or sinus arrest. No atrial fibrillation or atrial flutter. CONCLUSION: 1. This is a 7-day event monitor. 2. Sinus rhythm as a baseline mechanism. 3. No PACs or PVCs noted. 4. No sinus pause or sinus arrest. 5. No atrial fibrillation or atrial flutter noted. MMODL / IJN: [id number] /
== END | disposition home or self-care (01) ==
LOC: RADECHMAIN 06-21 07:02
PROVIDERS: ATTEND Family Medicine
DX: R00.2 Palpitations (principal)
CPT/HCPCS: 93270